=== PATIENT | male | born 1990 | race Caucasian/White ===

== ENCOUNTER 2020-07-18 17:07 | Emergency (ER) | payer MEDICAID ==
[~2020-07-18] VITALS: Ht 175.3 cm; Wt 8.1 kg
[~2020-07-18 17:07] MED LIST: AMLO-258 PO; FAMO20 PO
[2020-07-18 20:20] VITALS: BP 130/79
== END 2020-07-18 20:45 | disposition home or self-care (01) ==
LOC: EMS 17:10
DX: F15.10 Other stimulant abuse, uncomplicated (principal); F17.200 Nicotine dependence, unspecified, uncomplicated
CPT/HCPCS: 99281; Z7502